=== PATIENT | female | born 1950 | race Caucasian/White ===

== ENCOUNTER 2022-09-01 10:23 | Day surgery (SDC) | payer BC, SELFPAY ==
--- NOTE | 2022-08-31 13:22 | HO.ANESPROP2 ---
Documented by User: Gita Gardner NP 08/31/22 13:22 HPI - Anesthesia Eval Consult details Narrative: 72yo F for Colonoscopy [facility] Past Medical History Medical History Diverticulitis Hyperlipemia Hypothyroidism IBS (irritable bowel syndrome) Surgical History Surgical History H/O cervical spine surgery H/O umbilical hernia repair Ileostomy status S/P appendectomy S/P cholecystectomy Social History Social History Patient Tobacco Use Status: Former Tobacco user Tobacco use type: Smokeless Tobacco Cigarettes Per Day: 20 Date Education Initiated: 09/01/22 Use of substances other than those prescribed or required for medical reasons: No Are you DNR?: No Advance Directives: No Advance Directives Information Provided: Yes Meds Allergies Allergy/AdvReac Type Severity Reaction Status Date / Time No Known Allergies Allergy Unverified 08/29/22 17:10 Home Medications Medication Instructions Recorded Confirmed Last Taken Type Aspir-81 81 mg PO DAILY 08/31/22 08/31/22 Unknown History levothyroxine 100 mcg tablet 1 tab PO DAILY 08/31/22 08/31/22 Unknown History (Synthroid) loperamide 2 mg capsule 1 cap PO QID PRN diarrhea 08/31/22 08/31/22 Unknown History simvastatin 10 mg tablet 1 tab PO BEDTIME 08/31/22 08/31/22 Unknown History Exam Exam Date and Time: August 31, 2022 1322 Assessment and Plan Assessment Anesthesia Assessment: Chart Reviewed Documented by User: Aubrey Hauser MD 09/01/22 11:04 [facility] Past Medical History Medical History Diverticulitis Hyperlipemia Hypothyroidism IBS (irritable bowel syndrome) Family History Family history of problems with anesthesia: No Surgical History Surgical History (Reviewed 09/01/22 @ 10:45 by REBECCA Mcgill H/O cervical spine surgery H/O umbilical hernia repair Ileostomy status S/P appendectomy S/P cholecystectomy History of Problems with Anesthesia: No Social History Social History Patient Tobacco Use Status: Former Tobacco user Tobacco use type: Smokeless Tobacco Cigarettes Per Day: 20 Date Education Initiated: 09/01/22 Use of substances other than those prescribed or required for medical reasons: No Are you DNR?: No Advance Directives: No Advance Directives Information Provided: Yes Meds Allergies Allergy/AdvReac Type Severity Reaction Status Date / Time No Known Allergies Allergy Unverified 08/29/22 17:10 Home Medications Medication Instructions Recorded Confirmed Last Taken Type Aspir-81 81 mg PO DAILY 08/31/22 08/31/22 Unknown History levothyroxine 100 mcg tablet 1 tab PO DAILY 08/31/22 08/31/22 Unknown History (Synthroid) loperamide 2 mg capsule 1 cap PO QID PRN diarrhea 08/31/22 08/31/22 Unknown History simvastatin 10 mg tablet 1 tab PO BEDTIME 08/31/22 08/31/22 Unknown History Exam Airway Mallampati Class: III TM Dist: >3cm Neck ROM: Full Loose/Missing/Broken Teeth: No Heart: rrr Lungs: clear Assessment and Plan Final Anesthetic Review Family History of Problems with Anesthesia: No History of Problems with Anesthesia: No NPO: Yes ASA Class: II Final Preanesthetic Review: No Changes in Pt Med Stat, Meds/Allgs Chart Reviewed, Consent Obtained/Reviewed and Anes Risks/Benef Reviewed Patient Risk: Intermediate Procedure Risk: Low Anesthetic Plan Anesthetic Plan: MAC: Disposition: Standard PACU
[2022-09-01 10:41] VITALS: BP 133/86; PULSE 92; RESP 16; TEMP 36.3; O2SAT 98; BMI 19.7
[2022-09-01 10:43] VITALS: BMI 19.7
[2022-09-01] MEDS: Lactated Ringers 1,000 ML 100 ML IVCONT (11:01)
[2022-09-01 11:42] VITALS: BP 92/46; PULSE 81; RESP 16; TEMP 36.4; O2SAT 96
--- NOTE | 2022-09-01 11:50 | P.BOP_ITS ---
Brief Operative Note Date of Service: 09/01/22 Pre-op diagnosis: Screening Post-op diagnosis: other (Internal hemorrhoids) Procedure: Colonoscopy to the cecum and TI Surgeon: Sunday Lerma Anesthesia: MAC Was an Facilities Management Executive used for this Procedure?: No Estimated blood loss (mL): 0 Pathology: none sent Condition: stable Disposition: PACU
[2022-09-01 11:57] VITALS: BP 92/46; PULSE 71; RESP 18; O2SAT 97
[2022-09-01 12:12] VITALS: BP 136/60; PULSE 61; RESP 18; TEMP 36.4; O2SAT 99
--- NOTE | 2022-09-01 23:57 | OP_ITS ---
SURGEON: Sunday Lerma MD INDICATIONS: The patient presents for evaluation of colorectal cancer screening. Full consent obtained from her for this, including risks of bleeding and perforation. PREOPERATIVE DIAGNOSIS: Colorectal cancer screening. POSTOPERATIVE DIAGNOSIS: Colorectal cancer screening, internal hemorrhoids, normal anastomosis. PROCEDURE PERFORMED: Colonoscopy to the cecum and terminal ileum. ESTIMATED BLOOD LOSS: COMPLICATIONS: ANESTHESIA: Monitored anesthesia care. ASSISTANTS: SPECIMENS: DESCRIPTION OF PROCEDURE: The patient was placed in the left lateral decubitus position. The digital rectal exam revealed no abnormalities. The Olympus video pediatric colonoscope was entered into the rectum and advanced easily to the cecum. Once in the cecum, I did identify normal-appearing cecal pouch with appendiceal orifice and a normal-appearing ileocecal valve. The terminal ileum was cannulated and appeared normal. Scope withdrawn back in the colon. The entire cecum and ileocecal valve appeared normal. The scope was slowly withdrawn assessing all mucosal surfaces carefully. Preparation was excellent. I did not visualize any sign of polyps, colitis, nor angiodysplasia. Her anastomosis was quite low at approximately 5 cm. This appeared patent without ulceration, nor stricture. Two retained zoe were noted. The scope was able to be retroflexed visualizing some internal hemorrhoids as well. The scope was straightened and withdrawn from the patient. She tolerated the procedure well and was returned to recovery area in stable condition. IMPRESSION: 1. Normal anastomosis. 2. Internal hemorrhoids. PLAN: At this point, the patient reports that her diarrhea is well controlled by taking 1 antidiarrheal medication daily, which she thinks is Imodium. Therefore, I have advised her to stay on this. She never did start the Colestid. Previous biopsies have been negative for microscopic colitis and therefore, they were not repeated today. Given her age and today negative exam, I do not think any further colonoscopies will be needed from a screening standpoint. She will otherwise see me on a p.r.n. basis. She was advised that she could resume her aspirin today. MD ALFONSO Muse/BRAD / [id number]
== END 2022-09-01 12:47 | disposition home or self-care (01) ==
PROVIDERS: PCP Family Medicine; Visit Provider Internal Medicine
PROC: 0DJD8ZZ Inspection of Lower Intestinal Tract, Via Natural or Artificial Opening Endoscopic (ICD-10-PCS; CPT 45378; principal; 2022-09-01 11:30)
DX: Z12.11 Encounter for screening for malignant neoplasm of colon (principal); K64.8 Other hemorrhoids; K58.9 Irritable bowel syndrome, unspecified; E78.5 Hyperlipidemia, unspecified; E03.9 Hypothyroidism, unspecified; Z98.0 Intestinal bypass and anastomosis status; Z79.82 Long term (current) use of aspirin; Z90.49 Acquired absence of other specified parts of digestive tract; Z79.899 Other long term (current) drug therapy; Z87.891 Personal history of nicotine dependence
CPT/HCPCS: 45378